=== PATIENT | female | born 1995 | race Caucasian/White ===

== ENCOUNTER 2016-10-01 22:58 | Emergency (ER) | payer OTHER ==
[2016-10-01] MEDS ORDERED: IOPAMIDOL 300 (61%) 100 ML VIAL IV ONE (22:59)
[2016-10-01 23:41] LABS: PH,URINE 6.5 (5.0-8.0); URINE BILIRUBIN NEGATIVE (NEGATIVE); URINE BLOOD 3+ (NEGATIVE); URINE GLUCOSE (UA) NEGATIVE (NEGATIVE); URINE LEUKOCYTE ESTERASE 2+ (NEGATIVE); URINE NITRITE POSITIVE (NEGATIVE); URINE PROTEIN 2+ (NEGATIVE); URINE UROBILINOGEN NORMAL (0-1 mg/dl)
[2016-10-01] MEDS ORDERED: HYDROMORPHONE HCL 0.5 MG/0.5 ML SYRINGE ONE (23:43)
[2016-10-01] MEDS ORDERED: ONDANSETRON 4 MG/2ML 2 ML VIAL ONE (23:43)
[2016-10-01] MEDS ORDERED: LACTATED RINGERS 1,000 ML ONE (23:43)
[2016-10-01] MEDS ORDERED: ACETAMINOPHEN 500 MG TABLET ONE (23:43)
[2016-10-01 23:45] LABS: URINE APPEARANCE CLOUDY; URINE COLOR YELLOW
[2016-10-01 23:50] LABS: URINE BACTERIA 2+; URINE EPITHELIAL CELLS 0-2 /hpf; URINE WBC >50 /hpf
[2016-10-01 23:54] LABS: HCG,QUALITATIVE URINE NEGATIVE
[2016-10-02] LABS: ABSOLUTE NEUTROPHIL COUNT 12.2 K/mm3 (1.8-7.7); BASO # 0.1 K/mm3 (0.0-0.2); BASO % 0.3 % (0.2-1.0); EOS % 0.2 % (0.9-2.9); HEMOGLOBIN 12.2 gm/l (12.0-16.0); IMM NEUT # 0.1 K/mm3 (0-0.2); IMM NEUT% 0.4 % (0-1); LYMPH # 0.8 (1.0-4.8); LYMPH % 5.2 % (15-45); MEAN CELL VOLUME 90.5 fl (81.0-99.0); MEAN CORPUSCULAR HEMOGLOBIN 29.8 pg (27.0-31.0); MEAN PLATELET VOLUME 10.2 fl (7.4-10.4); MONO # 1.9 (0.0-0.8); MONO % 12.8 % (4-12); NEUT % 81.1 % (43-75); PLATELET COUNT 232 K/mm3 (130-400); RED CELL DISTRIBUTION WIDTH 13.6 % (11.5-14.5)
[2016-10-02 00:13] LABS: ALB/GLOB RATIO 1.5 (>1.0); ALBUMIN 4.3 gm/dL (3.5-5.7); CALCIUM 9.4 mg/dL (8.6-10.3)
[2016-10-02] MEDS ORDERED: CEFTRIAXONE 1 GRAM DUPLEX 50 ML IV ONE (03:07)
[2016-10-02] MEDS ORDERED: KETOROLAC TROMETHAMINE 15 MG/ML VIAL ONE (03:21)
--- NOTE | 2016-10-02 08:29 | CT ---
Exam Type: ABD/PELVIS W/ CON Date and Time: 10/02/2016 12:26 AM Clinical information: Right lower quadrant and right flank pain. Comparison: 07/20/2016. Procedure: Imaging device: [employer] [address] scanner 1 mm axial images were obtained through the abdomen and pelvis. Stacked reconstructed 3, 4 and 5 mm images were photographed in the axial coronal and sagittal planes. No oral contrast was utilized for this examination. 100 ml of Isovue-300 was injected intravenously. Exam: with intravenous contrast. FINDINGS: Lung bases:The visualized lung bases appear to be appropriate with no mass, effusion or consolidation visualized. Liver: the liver is homogeneous with no discrete abnormality visualized. No definite findings of biliary dilatation are observed. Spleen: The spleen is homogeneous and does not appear to be enlarged. Gallbladder: Normal without enlargement or evidence of adjacent inflammatory changes. Pancreas: Normal without enlargement or evidence of adjacent inflammatory changes. Adrenal glands: Normal without enlargement or evidence of adjacent inflammatory changes. Abdominal aorta: The aorta is of normal caliber and appears to be without significant atherosclerotic disease. Kidneys: The kidneys again demonstrate areas of central increased attenuation, corresponding to the calcific foci on prior unenhanced examination, and consistent with medullary nephrocalcinosis. The enhancement pattern is relatively symmetric. Mild prominence of the right renal collecting system and ureter is observed without a definitive ureteral calculus. However, enhancement is noted of the right collecting system and ureteral wall, raising concern for underlying ureteris. Bowel structures: The visualized bowel is of normal caliber without evidence of dilatation or obstruction. No free fluid or mesenteric inflammatory changes are identified. Appendix: The appendix is well-visualized and appears to be of normal caliber. No periappendiceal inflammatory changes or CT findings of appendicitis are currently observed. Bladder: The bladder is of normal contour. No wall thickening or significant distention is observed. Hernia: No abdominal wall or inguinal hernia is visualized on this examination. Adenopathy: No significant enlarged adenopathy is visualized. Osseous structures: No discrete osseous abnormalities are identified. Pelvic structures: No discrete pelvic abnormalities are visualized in this examination. IMPRESSION: 1. Findings of bilateral medullary nephrocalcinosis. There is mild prominence of the right renal collecting system and right ureter without a definitive obstructing ureteral calculus. However, asymmetric enhancement of the ureteral and collecting system wall on the right raises concern for underlying infection or ureteris. 2. A normal appearance of the appendix without CT evidence of appendicitis. The findings were called to the emergency room at 0123 hours, 10/02/2016, by [facility].
[2016-10-03 13:29] LABS: CHLAMYDIA BD Negative (Negative); N.GONORRHOEAE BD Negative (Negative); SOURCE Urine (())
== END 2016-10-02 03:57 | disposition home or self-care (01) ==
LOC: ED 22:58
DX: N12 Tubulo-interstitial nephritis, not specified as acute or chronic (principal); R10.31 Right lower quadrant pain; R11.2 Nausea with vomiting, unspecified
CPT/HCPCS: 83690; 87491; 87591; 81025; 85025; 87086; 80053; 87186; 81001; 74177; 96375 ×3; 99284 ×2; 96361; 96365; J1885; A9270; J2405; J7120; Q9967; J1170; J0696